=== PATIENT | male | born 1980 | race Caucasian/White ===

== ENCOUNTER 2020-01-12 14:35 | Outpatient (CLI) | payer OTHER, SELFPAY ==
[2020-01-13 09:50] LABS: Reference Lab Test Result Negative
== END 2020-01-12 14:36 | disposition home or self-care (01) ==
PROVIDERS: PCP Internal Medicine; Visit Provider Internal Medicine
DX: Z86.19 Personal history of other infectious and parasitic diseases (principal)
CPT/HCPCS: 36415; 86769

== ENCOUNTER 2021-07-05 07:38 | Outpatient (RCR) | payer OTHER, SELFPAY ==
[2021-07-05] MEDS: diphenhydrAMINE HCl CAP 25 MG CAPSULE PO (08:16)
[2021-07-05] MEDS: ACETAMINOPHEN 325 MG TABLET 650 MG PO (08:16)
[2021-07-05] MEDS: FAMOTIDINE 20 MG TABLET PO (08:17)
[2021-07-05 08:31] VITALS: BP 125/72; PULSE 72; RESP 18; TEMP 37.1; O2SAT 97
[2021-07-05 09:50] VITALS: BP 126/71
--- NOTE | 2021-07-06 15:55 | PC.NURSE ---
Patient states that he is feeling better after covid infusion.
== END 2021-07-05 16:02 | disposition home or self-care (01) ==
LOC: AMCINF 07:38
PROVIDERS: PCP Internal Medicine; Referring Provider Internal Medicine; Visit Provider Internal Medicine Hematology & Oncology
DX: Z23 Encounter for immunization (principal); U07.1 COVID-19
CPT/HCPCS: A9270; M0243; Q0243

== ENCOUNTER 2022-02-14 20:19 | Emergency (ER) | payer OTHER, SELFPAY ==
--- NOTE | ~2022-02-14 | CT_ITS ---
EXAMINATION: CT facial bones wo con DATE: 02/14/2022 21:03 INDICATION: Right facial pain TECHNIQUE: Computed tomography (CT) of the facial bones and maxillofacial region was performed withou t intravenous contrast. The dose-length product (DLP) was 341.67 mGy-cm. Automated exposure control a nd iterative reconstruction technique were employed. COMPARISON: None. FINDINGS: There is no fracture. There is soft tissue swelling of the right face. There is mild mucosa l thickening in the maxillary sinuses. The globes and orbits are normal. The visualized portions of t he cervical spine are unremarkable. IMPRESSION: 1. No acute facial fracture identified. Reviewed, dictated and finalized at location F.
[2022-02-14 20:38] VITALS: BP 123/75; PULSE 68; RESP 18; TEMP 36.3; O2SAT 99
--- NOTE | 2022-02-14 21:36 | ED.HEATRA ---
HPI - Head Injury General Chief complaint: Head Injury Stated complaint: facial injury Time Seen by Provider: 02/14/22 20:45 History of Present Illness HPI Narrative: Patient presents with a head injury. Patient reports he was at baseball practice when he got struck in the face with a line drive. There is no loss of consciousness he went home and manage his symptoms he noted some swelling called his primary care doctor and he was told he needed to go to the emergency room. Reports he feels well has a mild headache denies any fractured teeth denies any malocclusion reports mild pain with opening his jaw denies any shortness of breath or fevers denies any chest pain focal numbness or weakness Related Data Home Medications Medication Instructions Recorded Confirmed No Home Medications 12/05/21 01/21/22 Allergies Allergy/AdvReac Type Severity Reaction Status Date / Time oxycodone [From Percocet] Allergy Mild Itching Verified 02/14/22 20:42 Review of Systems Review of Systems: CONSTITUTIONAL: Denies fever, chills, or sweats. EYES: Denies visual changes, redness, or discharge. ENT: Denies rhinorrhea, congestion, sore throat, or otalgia. CARDIOVASCULAR: Denies chest pain, palpitations, or edema. RESPIRATORY: Denies cough or dyspnea. GASTROINTESTINAL: Denies abdominal pain, nausea, vomiting, or diarrhea. GENITOURINARY: Denies dysuria or hematuria. SKIN: Denies rash or itching. MUSCULOSKELETAL: Denies back pain, joint pain, or myalgia. NEUROLOGIC: Denies headache, numbness, dizziness, or weakness. PSYCHIATRIC: Denies anxiety or depression. All systems reviewed & are unremarkable except as noted in HPI and below [facility] Past Medical History Medical History Annual physical exam BMI 28.0-28.9,adult BMI 30.0-30.9,adult Bone spur of foot Diarrhea DJD (degenerative joint disease), multiple sites Encounter for preventive health examination Encounter for routine adult health examination with abnormal findings Encounter to establish care Exposure to influenza Family history of diabetes mellitus FHx: prostate cancer History of disruption of posterior cruciate ligament Indigestion Pain and swelling of left knee Personal history of COVID-19 Proctalgia fugax Seasonal allergies Surgical History Surgical History H/O left knee surgery Family History Family History Father Malignant neoplasm of prostate Hypertension Mother Hypertension Diabetes mellitus Other Family history of cardiovascular disease Family history of malignant neoplasm Social History Social History Smoking status: Never smoker Alcohol intake: current Alcohol use details: Beer and wine Substance use: former Additional occupation/education comments: Self Employed Gender identity (if verbalized by the patient): Male Spiritual care concerns: No Exam Narrative: GENERAL: Well-appearing, well-nourished, and in no acute distress. HEAD: Normocephalic, mild swelling noted on the right cheek EYES: PERRLA and EOMI. ENT: Nares clear, no rhinorrhea or epistaxis. Mucous membranes moist. There is ecchymoses and lacerations on the buccal mucosa on the right side there is no fractured teeth no malocclusion no trismus no external open or draining wounds no focal crepitus or bony tenderness NECK: Supple. No masses. No JVD EXTREMITIES: Normal range of motion. No edema. SKIN: Warm, dry, no rash. NEURO: No focal deficits. Alert and oriented x3. PSYCH: Normal mood and affect. Course Reevaluation(s) Reevaluation #1: Patient resting comfortably results and plan reviewed with patient. Patient is comfortable outpatient plan. Date: 02/14/22 Time: 21:39 Vital Signs Vital signs: Vital Signs Temperature 36.3 C L 02/14/22 20:38 Puls
[2022-02-14 21:48] VITALS: BP 118/68; PULSE 74; RESP 16; TEMP 36.4; O2SAT 100
== END 2022-02-14 21:52 | disposition home or self-care (01) ==
PROVIDERS: Emergency Provider Emergency Medicine; PCP Internal Medicine
DX: S01.512A Laceration without foreign body of oral cavity, initial encounter (principal); S09.93XA Unspecified injury of face, initial encounter; M19.90 Unspecified osteoarthritis, unspecified site; Z86.16 Personal history of COVID-19; W21.03XA Struck by baseball, initial encounter; Y93.64 Activity, baseball
CPT/HCPCS: 70486; 99284

== ENCOUNTER 2022-09-30 08:28 | Outpatient (CLI) | payer OTHER, SELFPAY | END 2022-09-30 08:29 | disposition home or self-care (01) | LOC: ANHLAB 08:28 | PROVIDERS: PCP Internal Medicine; Visit Provider Internal Medicine | DX: L98.9 Disorder of the skin and subcutaneous tissue, unspecified (principal) | CPT/HCPCS: 87081 ==

== ENCOUNTER → 2022-11-29 10:28 | Outpatient (CLI) | payer OTHER, SELFPAY ==
--- NOTE | ~2022-11-29 | US_ITS ---
EXAMINATION: US scrotum doppler DATE: 11/29/2022 11:03 INDICATION: Other specified disorders of male genitalia with enlarging palpable lump at the left test is. TECHNIQUE: Testicular sonogram utilizing grayscale and Doppler COMPARISON: None. FINDINGS: The right testis measures 4.8 x 2.3 x 3.6 cm. The left testis measures 2.7 x 2.2 x 3.0 cm. Symmetric normal grayscale appearance to both testes. There is normal vascular flow to both testes. The right e pididymis is normal with normal vascular flow. Small region of thickening and heterogeneous decreased signal at the left epididymal tail without a discrete nodule or associated hyperemia most likely seq uela of chronic epididymitis. There are no dilatation of the director of employer services this is located in the regio n of the palpable abnormality. There is no varicocele or hydrocele. IMPRESSION: 1. Palpable abnormality of concern appears to correspond to a region of focal thickening and decreas ed echogenicity of the tail of the left epididymis without discrete nodule or hyperemia most likely r epresenting sequela of chronic epididymitis. Reviewed, dictated and finalized at location B. IMPRESSION: 1. Palpable abnormality of concern appears to correspond to a region of focal thickening and decreased echogenicity of the tail of the left epididymis withou t discrete nodule or hyperemia most likely representing sequela of chronic epid idymitis.
== END ==
PROVIDERS: PCP Internal Medicine; Visit Provider Internal Medicine
DX: N50.89 Other specified disorders of the male genital organs (principal)
CPT/HCPCS: 76870; 93976

== ENCOUNTER 2024-04-23 00:31 | Day surgery (SDC) | payer BC, SELFPAY ==
[2024-04-02 13:10] VITALS: BMI 28.9
[2024-04-23 10:52] VITALS: BP 132/76; PULSE 84; RESP 16; TEMP 36.5; O2SAT 98
[2024-04-23] MEDS: LACTATED RINGERS 1,000 ML 150 ML IV CONT (11:05)
--- NOTE | 2024-04-23 11:11 | PM.HPGS ---
History of Present Illness History of Present Illness Consent: Risks, benefits, and alternatives have been discussed and questions answered. Patient agrees to proceed with procedure. Chief complaint: Anal spasm Narrative: Davis Hope is a 43 year old male here for first colonoscopy, intermittent anal spasm Review of Systems Review of Systems: All systems reviewed & are unremarkable except as noted in HPI and below PMFSH Past Medical History Medical History (Updated 10/17/23 @ 08:05 by Alem Jennings [facility]) Annual physical exam Benign familial tremor BMI 27.0-27.9,adult BMI 28.0-28.9,adult BMI 30.0-30.9,adult Bone spur of foot Changing skin lesion Chronic epididymitis Diarrhea DJD (degenerative joint disease), multiple sites Encounter for preventive health examination Encounter for routine adult health examination with abnormal findings Encounter to establish care Exposure to influenza Family history of diabetes mellitus FHx: prostate cancer Folliculitis Follow up History of disruption of posterior cruciate ligament Indigestion Pain and swelling of left knee Personal history of COVID-19 Proctalgia fugax Seasonal allergies Skin lesions Testicular abnormality Surgical History Surgical History H/O left knee surgery Family History Family History Father Malignant neoplasm of prostate Hypertension Mother Hypertension Diabetes mellitus Other Family history of cardiovascular disease Family history of malignant neoplasm Social History Social History Smoking status: Never smoker Smokeless tobacco user: chewing tobacco Second hand tobacco smoke exposure: No Additional smoking assessment comments: QUIT CHEWING TOBACCO Alcohol intake: current Drinks per week: 8 Alcohol use details: WINE Substance use: never Substance use type: does not use Lack of Transportation: No Lack of Food: Never True Current Housing: I Have Housing Concerned About Future Housing: No Difficulty Paying Gas/Electric Bills: No Difficulty Paying for Meds: No Currently Unemployed: No Education: Master's Degree or Higher Living arrangements: alone Occupation/Education: occupation Additional occupation/education comments: Self Employed Gender identity (if verbalized by the patient): Male Spiritual care concerns: No Meds Home Medications and Allergies Home Medications Medication Instructions Recorded Confirmed Type triamcinolone acetonide 0.5 % 1 applic topical BID #16 oz 11/07/23 04/02/24 Rx topical cream Allergies Allergy/AdvReac Type Severity Reaction Status Date / Time oxycodone [From Percocet] Allergy Mild Itching Verified 04/23/24 10:52 Vital Signs Vital Signs - 24 hr 04/23/24 10:52 Temperature 97.7 F Pulse Rate 84 Respiratory Rate 16 Blood Pressure 132/76 Pulse Oximetry 98 Oxygen Delivery Room Air Exam Const: General: comfortable and no acute distress HENMT: Face/Nose/Sinus: Normal nares present Eyes: General: appearance normal, both eyes and all related structures Neck: Neck: no JVD Resp: Auscultation: clear to auscultation bilaterally Cardio: Rate: regular rate Rhythm: regular rhythm GI: Inspection: non-distended GI Palp: Yes Soft to palpation Skin: General skin exam: normal color Neuro: General: gait normal Speech: normal speech Extrem: General: normal to inspection Psych: Mental Status: mental status grossly normal Assessment and Plan Assessment and plan (1) Proctalgia fugax: Code(s): K59.4 - Anal spasm Status: Acute Assessment and Plan: colonoscopy
--- NOTE | 2024-04-23 11:14 | WPDANESEPPF ---
Anes - Initial Pre Proc Eval Procedure: Operation Date: 04/23/24 14:30 Proposed Procedures p Colonoscopy - Trae Lagos MD Date/Time: 04/23/24 11:14 Surgeon: Trae Lagos MD Pre Op Diagnosis: Anal spasm Patient Data Age: 43 Gender: M Height: 1.91 m Weight: 102 kg Last Vital Signs Temp 97.7 F 04/23/24 10:52 Pulse 84 04/23/24 10:52 Resp 16 04/23/24 10:52 BP 132/76 04/23/24 10:52 Pulse Ox 98 04/23/24 10:52 O2 Del Method Room Air 04/23/24 10:52 Allergies Allergy/AdvReac Type Severity Reaction Status Date / Time oxycodone [From Percocet] Allergy Mild Itching Verified 04/23/24 10:52 Home Medications Medication Instructions Recorded Confirmed Type triamcinolone acetonide 0.5 % 1 applic topical BID #16 oz 11/07/23 04/02/24 Rx topical cream Patient hx anesthesia problems: none Family hx anesthesia problems: none Results Review: All pre-operative results and documents have been reviewed as part of the pre-operative evaluation. [facility] Past Medical History Medical History (Updated 10/17/23 @ 08:05 by Alem Jennings CMA) Annual physical exam Benign familial tremor BMI 27.0-27.9,adult BMI 28.0-28.9,adult BMI 30.0-30.9,adult Bone spur of foot Changing skin lesion Chronic epididymitis Diarrhea DJD (degenerative joint disease), multiple sites Encounter for preventive health examination Encounter for routine adult health examination with abnormal findings Encounter to establish care Exposure to influenza Family history of diabetes mellitus FHx: prostate cancer Folliculitis Follow up History of disruption of posterior cruciate ligament Indigestion Pain and swelling of left knee Personal history of COVID-19 Proctalgia fugax Seasonal allergies Skin lesions Testicular abnormality Surgical History Surgical History H/O left knee surgery Family History Family History Father Malignant neoplasm of prostate Hypertension Mother Hypertension Diabetes mellitus Other Family history of cardiovascular disease Family history of malignant neoplasm Social History Social History Smoking status: Never smoker Smokeless tobacco user: chewing tobacco Second hand tobacco smoke exposure: No Additional smoking assessment comments: QUIT CHEWING TOBACCO Alcohol intake: current Drinks per week: 8 Alcohol use details: WINE Substance use: never Substance use type: does not use Lack of Transportation: No Lack of Food: Never True Current Housing: I Have Housing Concerned About Future Housing: No Difficulty Paying Gas/Electric Bills: No Difficulty Paying for Meds: No Currently Unemployed: No Education: Master's Degree or Higher Living arrangements: alone Occupation/Education: occupation Additional occupation/education comments: Self Employed Gender identity (if verbalized by the patient): Male Spiritual care concerns: No Anes - Eval Final PreProcedure Day of Procedure 04/23/24 11:14 Patient weight: normal Heart: regular rate and rhythm Lungs: clear to auscultation Airway: Mallampati scale class II Neurological: alert and oriented Last oral intake: >/= 8 hours ASA classification: I Emergent: no Anesthetic plan: proceed Anesthesia type and monitoring: general GIVS and standard monitoring Results Review: All pre-operative results and documents have been reviewed as part of the pre-operative evaluation. Informed Consent: The patient's anesthetic plan and its attendant risks and benefits were discussed with the patient/family/POA. Questions were solicited and answers provided to the satisfaction of the patient/family/POA.
[2024-04-23 11:27] VITALS: BP 119/74; PULSE 59; RESP 20; O2SAT 99
[2024-04-23 11:37] VITALS: BP 113/71; PULSE 59; RESP 24; O2SAT 100
[2024-04-23 11:47] VITALS: BP 122/80; PULSE 83; RESP 22; O2SAT 97
== END 2024-04-23 12:05 | disposition home or self-care (01) ==
PROVIDERS: PCP Internal Medicine; Visit Provider Internal Medicine Gastroenterology
PROC: 0DJD8ZZ Inspection of Lower Intestinal Tract, Via Natural or Artificial Opening Endoscopic (ICD-10-PCS; CPT 45378; principal; 2024-04-23 14:30)
DX: K59.4 Anal spasm (principal); K64.8 Other hemorrhoids; Z87.891 Personal history of nicotine dependence
CPT/HCPCS: 45378; J2704; J7120